=== PATIENT | female | born 1990 | race Caucasian/White ===

== ENCOUNTER 2016-07-02 21:01 | Emergency (ER) | payer OTHER | END 2016-07-02 23:03 | disposition home or self-care (01) | LOC: FER 21:01 | DX: M72.2 Plantar fascial fibromatosis (principal); M77.32 Calcaneal spur, left foot; K21.9 Gastro-esophageal reflux disease without esophagitis; F17.210 Nicotine dependence, cigarettes, uncomplicated; Z79.899 Other long term (current) drug therapy | CPT/HCPCS: 73630; 99283 ==

== ENCOUNTER 2016-09-03 21:42 | Emergency (ER) | payer OTHER | END 2016-09-04 00:20 | disposition left against medical advice (07) | LOC: FER 21:42 | DX: R22.33 Localized swelling, mass and lump, upper limb, bilateral (principal); Z53.8 Procedure and treatment not carried out for other reasons ==